=== PATIENT | male | born 1995 | race Caucasian/White ===

== ENCOUNTER 2024-06-22 11:10 | Emergency (ER) | payer OTHER, SELFPAY ==
[2024-06-22 11:12] VITALS: BP 140/93
--- NOTE | 2024-06-22 13:25 | ED.GENMED ---
History of Present Illness
General
Chief Complaint: Throat Problem
Source: patient
Exam Limitations: none
Time Seen by Provider: 06/22/24 11:46
Nursing documentation reviewed up to this point in time: agreed with
History of Present Illness
History of Present Illness:
Patient is a 21-year-old male who presents to the ER for evaluation. Patient reports 40 hours ago he was eating [place] onion soup and feels that a piece of cheese is stuck in his upper throat. He has been able to eat and drink well he has been
able swallow secretions however has a sensation that' that she is going up or down. Patient was recently weaned off Zyprexa and states' while on that medication my muscles were weak and this makes sense now.' Patient very anxious he reports he has
tried yuniel maxi with vinegar and salt water however continues to have the sensation. He called his insurance company and they recommended he come to the ER. He reports he is very angry that he was sent to the ER. He denies any difficulty
speaking or shortness of breath.
Review of Systems
Review of Systems
Allergies reviewed?: Yes
All Other Systems: ROS reviewed and negative except as documented in HPI and ROS
Constitutional: Reports no symptoms
EENT: Reports other (throat irritation)
Respiratory: Denies trouble breathing
Cardiac: Reports no symptoms
ABD/GI: Reports no symptoms
Musculoskeletal: Reports no symptoms
Skin: Reports no symptoms
Neurological: Reports no symptoms
Psychiatric: Reports no symptoms
Phy Exam
General Physical Exam
General Presentation: no apparent distress
General age: appears stated age
General Skin: warm and dry
General Habitus: normal
General Mental: alert
General Hydration: appears well hydrated
ENT Exam
ENT Exam: other (Normal pharyngeal exam no redness no foreign body)
Cardiovascular Exam
Cardiovascular Exam: regular rate/rhythm, no murmur and normal peripheral pulses
Pulmonary Exam
Pulmonary Exam: lungs clear and no respiratory distress
Neurological Exam
Neurological Exam: alert and oriented x3
Musculoskeletal Exam
Musculoskeletal Exam: full ROM
Skin Exam
Skin Exam: normal color and warm/dry
Psychiatric Exam
Psychiatric Exam: anxious
Course
Vital Signs
Initial and Last Documented VS:
Initial Vital Signs
Temp Pulse Resp BP Pulse Ox
97.9 F 90 16 140/93 99
06/22/24 11:12 06/22/24 11:12 06/22/24 11:12 06/22/24 11:12 06/22/24 11:12
Last Documented Vital Signs
Temp Pulse Resp BP Pulse Ox
97.9 F 90 16 140/93 99
06/22/24 11:12 06/22/24 11:12 06/22/24 11:12 06/22/24 11:12 06/22/24 11:12
MDM/Problems Addressed
Differential Diagnosis Includes:
Less likely esophageal foreign body, esophageal irritation
MDM/Problems Addressed:
Patient complains of an irritated foreign body sensation in his throat after eating mozzarella cheese from [place] onion soup. This occurred over 40 days ago. Patient is very anxious that this occurred because he is weaned off of his Zyprexa. He
presents very anxious but in no acute distress his pharynx is clear he he is not drooling tolerating secretions well and has been eating and drinking since episode occurred it is likely this is irritation. His lungs are clear his voice is clear his
no acute distress and not hypoxic nontachycardic stable for discharge home.
I did recommend he follow-up with ENT if needed he is to return if any worsening of symptoms
*Pulse Oximetry
Patient hypoxic: no
*Critical Care Note
Total Time (30-74mins, 75-104mins- exclusive of procedures): Not Applicable
ED Attending Note
-
Portions of this chart may have been created with voice recognition software.� Occasional wrong word or��sound alike� substitutions may have occurred due to the inherent limitations of voice recognition software.
Discharge Plan
Departure
Patient Disposition: Home (Routine Discharge)
Date of Disposition: 06/22/24
Time of Disposition: 13:25
Patient with high blood pressure during this ER visit?: Yes
Condition: Fair
Covid-19: Not Applicable
Discharge Problem:
Dysphagia
Instructions: Dysphagia (DC), BLOOD PRESSURE
Referrals:
Zaheer Negron MD [Active] -
Activity Restrictions/Additional Instructions:
As discussed you have a foreign body sensation. Please follow-up with [employer]ap[employer] and arresting gear officer. You may call today for an appointment as soon as possible return if any worsening of symptoms.
Interventions
Interventions:
*Risk Screen - Suicide Last Done: 06/22/24 11:12
*General Assessment Last Done: 06/22/24 11:12
*Neglect/Abuse Screening Last Done: 06/22/24 11:12
*Nursing Disposition Last Done: 06/22/24 13:37
ED-EENT Assessment Last Done: 06/22/24 11:41
ED- Pulmonary Assessment Last Done: 06/22/24 11:41
Discharge Date and Time
Discharge Date/Time: 06/22/24 13:38
Print Language: [place]ET[place]
== END 2024-06-22 13:38 | disposition home or self-care (01) ==
LOC: EMR 11:10
PROVIDERS: EMERGENCY PHYSICIAN Emergency Medicine; FAMILY PHYSICIAN Family Medicine
DX: R13.10 Dysphagia, unspecified (principal)
CPT/HCPCS: 99282